=== PATIENT | female | born 1995 | race African-American/Black ===

== ENCOUNTER 2019-05-16 07:31 | Outpatient (CLI) | payer BC ==
--- NOTE | 2019-05-16 08:02 | ULT ---
RIGHT UPPER QUADRANT ULTRASOUND CLINICAL HISTORY: Right upper quadrant pain. COMPARISON: None FINDINGS: Liver:Normal echotexture without focal mass. Bile ducts: No intrahepatic or extrahepatic biliary dilation.; common bile duct: 0.27cm. Gallbladder: Normal appearing. Lazaro's sign:None Main portal vein:Patent with hepatopedal flow. Pancreas: Visualized pancreas appears normal. Right kidney: No pelvicalyceal dilatation. Right kidney measures 10.3 x 4.2 x 5.6 cm. Additional findings: None. IMPRESSION: Normal RUQ ultrasound.
== END 2019-05-16 07:32 | disposition home or self-care (01) ==
LOC: ULT 07:31
PROVIDERS: ATTEND Internal Medicine
DX: R10.11 Right upper quadrant pain (principal); R10.13 Epigastric pain; R11.0 Nausea
CPT/HCPCS: 76700